=== PATIENT | female | born 1940 | race Caucasian/White ===

== ENCOUNTER → 2025-05-10 08:19 | Outpatient (REF) | payer OTHER, SELFPAY | LOC: MRI 08:19 | PROVIDERS: ATTENDING PHYSICIAN Internal Medicine Interventional Cardiology; FAMILY PHYSICIAN Family Medicine | DX: I50.22 Chronic systolic (congestive) heart failure (principal) | CPT/HCPCS: 75561; 75565; A9585 ==

== ENCOUNTER 2025-06-07 12:09 | Day surgery (SDC) | payer OTHER, SELFPAY ==
[2025-06-07] VITALS (13 sets, daily range): BP systolic 136–176; BP diastolic 71–109; BMI 24.0
--- NOTE | 2025-06-07 15:50 | ITS.CL.ICD ---
Brand Director - ICD
Implantable Cardioverter Defibrillator
Procedure Report:
Primary Underground Production Foreperson: Dr Kita Cunningham
Procedure Date: 06/07/2025
Name of procedure:
1. Placement of a dual-chamber ICD
2. Subclavian venography
History:
1. Patient is a pleasant 85-year-old female with a past medical history significant for hypertension, dyslipidemia, COPD, depression, aortic stenosis, left regurgitation, sleep apnea, CAD, osteoarthritis, heart failure with reduced ejection
fraction, mixed ischemic/nonischemic cardiomyopathy.
2. Please refer to H&P for complete history.
Indication:
Heart failure with reduced ejection fraction, NYHA class III symptoms
Persistent cardiomyopathy with LVEF less than or equal to 35% despite maximally tolerated goal-directed medical therapy for greater than 90 days
Primary prevention for sudden cardiac
Symptomatic sinus bradycardia with need for AV dat blocking agents
Methods:
After informed consent was obtained, the patient was brought to the EP laboratory in a postabsorptive, nonsedated state. Peripheral IV access was established. Prophylactic antibiotics were administered prior to incision. Continuous ECG, blood
pressure, and pulse oximetry were initiated. Cardioversion patch electrodes were placed on the patient's chest and back. A grounding patch was applied to the skin. Sedation was administered by anesthesia services.
In order to define the extrathoracic portion of the subclavian vein and exclude significant venous obstruction or anomalous anatomy, subclavian venography was performed prior to the procedure. Using the patient's left peripheral IV, contrast was
injected and images were recorded. The left subclavian vein and SVC were found to be widely patent.
The left chest was prepared and draped in a sterile fashion. A time-out was performed. Local anesthesia was injected in the subcutaneous tissue in the infraclavicular area. An incision was made medial to the deltopectoral groove. The subcutaneous
tissue was dissected the level of the prepectoral fascia. A subcutaneous pocket was created. Under fluoroscopic guidance and with the assistance of the images from the venogram, 2 separate venipunctures were made using micropuncture and modified
Seldinger technique. These were performed in the extrathoracic portion of the subclavian vein. Guidewires were passed and two peel-away sheaths were placed, and used to advance leads into the circulation.
Using fluoroscopic guidance, the leads were positioned. The RV lead was advanced to the RV/outflow tract. Ventricular ectopy was recorded. Images were taken in FIELD and HEBREW views to ensure appropriate lead placement. The lead tip was subsequently
positioned on the apical septum. Adequate sensing and pacing parameters were found, and no diaphragmatic stimulation was seen with high-output pacing.
Next, the right atrial lead was positioned in the right atrial appendage. Adequate sensing and pacing parameters were found, and no diaphragmatic stimulation was seen with high-output pacing. Both sheaths were split, and the leads were secured to
the fascia with Ethibond ties.
The pocket was flushed with antibiotic solution and hemostasis was assured. The generator was connected to the leads and placed inside the pocket. Antibiotic envelope was used. Floseal was applied. The wound was closed with 3 running layers of
absorbable suture, and steri-strips were applied. Dressing applied over steri-strips in standard fashion.
Following the procedure, the patient was taken to the recovery area in stable condition.
Lead parameters and device programming:
- RA Lead (Medtronic, Model 5076, # [id number]): Sensing 0.7 mV, Pacing threshold 0.75 V at 0.4 ms, Imp 570 ohm
- RV Lead (Medtronic, Model 6935 M55, # [id number]): Sensing 18.0 mV, Pacing threshold 0.5 V at 0.4 ms, Imp 450 ohm
- Device: Medtronic, Model DXVN7H0 ICD (# [id number]), programmed AAIR�DDDR, mode switch on, low rate 50, upper tracking rate 130 ppm
- Zones: Monitor 150-188 bpm; VF 188 and above with iATP plus shocks
Conclusions:
1. Successful placement of a dual-chamber ICD
2. Subclavian venography
Recommendations:
- Admit
- Portable chest x-ray in recovery or room.
� [facility] in the morning
- IV antibiotics while the patient is admitted.
- OK to resume home medications as indicated
� Okay to resume aspirin/Plavix if patient and site stable 06/08/2025
- Pressure dressing to be removed in AM, aquacell to remain until wound check
- Follow-up for incision check in the office in 7-10 days post-discharge
Rubin Patel DO, FACC, RS
[employer] Associate
cc: Dr Magalie Porter; Dr Kita Cunningham
--- NOTE | 2025-06-07 16:00 | PTCARENOTE ---
Pt received from crime lab analyst s/p dual chamber ICD placement. Pt alert, oriented to person, place, and event. States it is 1925 for year, reoriented. Denies pain, shortness of breath, and nausea. ROONEY with equal strength throughout. A-paced on tele with
occasional PVCs on tele with rates in the 60s. BP 141/99. Heart tones audible. Bilateral radial and DP pulses palpable. No edema noted. POX 92% on RA. Lungs clear throughout. Abdomen soft, nontender. Hypoactive BS. Briefs removed, due to void. Left
upper chest wall incision covered with Aquacel and pressure dressing, CDI. Left AC 20g PIV intact. See MAR for medication administration. See worklist for complete nursing assessment. Plan of care reviewed and patient in agreement.
[2025-06-07] MEDS: CARAFATE SUSPENSION 1 GM PO ×2 (18:10→22:36)
[2025-06-07] MEDS: LIPITOR 40 MG PO (18:10)
[2025-06-07] MEDS: ANCEF 5 IV (19:48)
--- NOTE | 2025-06-07 20:00 | PTCARENOTE ---
Assumed care of patient at 1900. Patient found resting in bed at time of assessment. Patient is AOx4, follows commands appropriately, moves all extremities. Lung sounds are clear and equal bilaterally, saO2 93% on RA. Heart sounds are audible, there
is a murmur present on auscultation, normal palpable pulses and trace ankle edema present. Patient has active BS in all four quadrants and is voiding in the bathroom. There is a L chest incision with aquacell dressing supported by pressure dressing
that is CDI. Patient has L AC PIV for intermittent infusion. Call snowden within reach.
[2025-06-07] MEDS: TOPROL XL 25 MG PO (22:36)
--- NOTE | 2025-06-07 23:00 | PTCARENOTE ---
report received from previous RN, walking rounds done. pt in bed, AAOx4. denies any pain at this time. VSS. A-paced via PPM on tele with occasional PVCs, HR 60s. PPM site CDI with aquacall and pressure dressing in place. L arm immobilizer intact.
heart tones audible. bilateral radial and DP pulses palpable. no edema noted. bilateral breath sounds present, POX 93% on RA. abdomen soft, nontender. +BS. voids in BR without difficulty. PIV intact and patent. see worklist for full assessment, VS,
and interventions.
[2025-06-08 03:58] VITALS: BMI 23.9
--- NOTE | 2025-06-08 04:15 | PTCARENOTE ---
no changes in assessment, VSS. A.paced w PVCs on monitor, HR 60s. POX 95% on room air. PPM site CDI. AM labs drawn and sent. EKG and [facility] done. pt resting between care.
[2025-06-08 04:16] VITALS: BP 162/84
[2025-06-08 04:18] LABS: Hematocrit 37.6 % (37.0-47.0); Hemoglobin 12.5 g/dL (12.0-16.0); Mean Corp Hgb Conc. 33.2 g/dL (33.0-37.0); Mean Corpuscular Volume 90.4 fL (81.0-99.0); Platelet Count 214 10^3/uL (130-400); Red Cell Dist. Width 14.5 % (11.5-14.5)
[2025-06-08] MEDS: ANCEF 5 IV (04:19)
[2025-06-08 04:55] LABS: Blood Urea Nitrogen 18 mg/dl (7-17); Calcium 9.2 mg/dl (8.4-10.2); Carbon Dioxide 29 mmol/L (22-30); Chloride 108 mmol/L (98-107); Estimated Creatinine Clearance 40 ml/min; Glucose 104 mg/dl (70-99); Magnesium 1.7 mg/dl (1.6-2.3); Potassium 4.0 mmol/L (3.5-5.1); Sodium 141 mmol/L (135-145); eGFR > 60.00
[2025-06-08 08:00] VITALS: BP 137/84
--- NOTE | 2025-06-08 08:02 | W.PN.CARDCBS ---
Addendum entered and electronically signed by Rubin Patel DO 06/08/25 11:09:
I saw and examined the patient.
The Automatic Spinning Lathe Setter's note was reviewed and I agree with the note.
Comment:
Patient seen and examined this morning. Patient resting comfortably in bed. Patient denies any chest pain, shortness of breath, palpitations, weakness. She has mild tenderness at device site but overall feeling well.
Telemetry demonstrates a paced V sensed, a paced V paced, rare a sense V pacing.
EKG shows a paced V sensed with LVH
Chest x-ray shows no evidence of pneumothorax, mild congestion
A/P as below
Patient is doing well status post dual-chamber ICD for primary prevention sudden cardiac
Gentle IV diuresis and continued outpatient diuresis
Incision check in our office followed by follow-up with primary cardiology/primary care as scheduled
Original Note:
Today's Communication / Plan
-
Post DC ICD
stable for d/c home after gentle diuresis
Impression / Plan
-
Primary Worm Picker: Dr Kita Cunningham
Primary care physician: Magalie Porter MD
85-year-old female with a past medical history significant for hypertension, dyslipidemia, COPD, depression, aortic stenosis, left regurgitation, sleep apnea, CAD, osteoarthritis, heart failure with reduced ejection fraction, mixed
ischemic/nonischemic cardiomyopathy.
Impression:
Chronic HFrEF 25-30%
post Dual chamber ICD Medtronic 06/07/25
CAD with SAW MAKER RCA
mixed ischemic/nonischemic CM
HTN
HLD
COPD
RAMON
COPD
GERD
Overactive bladder with stimulator
mild
Depression
Plan:
post device site stable
tele Apaced with occ PVC's
CXR with no PTX, mild pulmonary edema and LLL atelectasis
denies SOB but has scattered crackles and wheeze, will give one time dose of IV Lasix this am, then resume PO in am
HF continue metoprolol succinate, losartan, Lasix, dapagliflozin
Activity restrictions reviewed
CAD on ASA/Plavix, statin
smoking cessation reinforced - she is down to 5 cigarettes/day
Incision check at [facility] 1 week
continue cardiac care with Dr. Cunningham
home this afternoon after diuresis
Progress Note - Worm Picker
Subjective
Date of Service: June 08, 2025
denies cp, sob
Objective
Labs:
06/08/25 04:02
06/08/25 04:02
Labs
Hgb 12.5 g/dL (12.0-16.0) 06/08/25 04:02
Hct 37.6 % (37.0-47.0) 06/08/25 04:02
Plt Count 214 10^3/uL (130-400) 06/08/25 04:02
Sodium 141 mmol/L (135-145) 06/08/25 04:02
Potassium 4.0 mmol/L (3.5-5.1) 06/08/25 04:02
BUN 18 mg/dl (7-17) H 06/08/25 04:02
Creatinine 0.7 mg/dL (0.6-1.0) 06/08/25 04:02
Glucose 104 mg/dl (70-99) H 06/08/25 04:02
Vital Signs and I&O:
Vital Signs
Temp Pulse Resp BP Pulse Ox
98.0 F 65 18 162/84 95
06/08/25 04:16 06/08/25 04:24 06/08/25 04:16 06/08/25 04:16 06/08/25 04:16
Vital Signs
Temp Pulse Resp BP Pulse Ox
98.0 F 65 18 162/84 95
06/08/25 04:16 06/08/25 04:24 06/08/25 04:16 06/08/25 04:16 06/08/25 04:16
Intake & Output
06/06/25 06/07/25 06/08/25 06/09/25
06:59 06:59 06:59 06:59
Intake Total 240 / 240
Balance 240 / 240
Physical Exam
Physical Exam
NAD, AOX3
S1, S2, RRR, III/ BERTHA
exp wheezes t/o with scattered crackles, non labored
SNTND Bsx4
L CW Dressing c/d/i no HT or drainage
No LE edema
--- NOTE | 2025-06-08 08:30 | PTCARENOTE ---
Resumed care of patient. Walking rounds completed with previous RN. Pt assessed while she was lying in bed. Pt alert and oriented x4. Denies pain, shortness of breath, and nausea. ROONEY with equal strength, independent in the room. A-paced via
AIDC/PPM on tele with occasional PVCs with rates in the 60s. BP 137/84. Bilateral radial and DP pulses palpable. No edema noted. POX 98% on RA. Lungs clear throughout. No cough. Abdomen soft, nontender. Hypoactive BS. Tolerated breakfast. Pt reports
no issues with urination. Left upper chest wall incision covered with antibacterial dressing, no drainage noted. Left AC PIV intact. See MAR for medication administration. See worklist for complete nursing assessment. Plan of care reviewed and
patient in agreement.
[2025-06-08 08:35] VITALS: BP 137/84
[2025-06-08] MEDS: LASIX 20 MG IV (08:36)
[2025-06-08] MEDS: CARAFATE SUSPENSION 1 GM PO ×2 (08:36→12:45)
[2025-06-08] MEDS: PROTONIX 40 MG PO (08:36)
[2025-06-08] MEDS: FEOSOL 325 MG PO (08:36)
[2025-06-08] MEDS: ASPIR LOW (ENTERIC COATED) 81 MG PO (08:36)
[2025-06-08] MEDS: KLOR-CON 20 MEQ PO (08:36)
[2025-06-08] MEDS: PLAVIX 75 MG PO (08:36)
[2025-06-08] MEDS: FARXIGA 10 MG PO (08:36)
[2025-06-08] MEDS: ZOLOFT 50 MG PO (08:36)
[2025-06-08] MEDS: COZAAR 100 MG PO (08:36)
--- NOTE | 2025-06-08 09:55 | W.DS.TRANS ---
DC Summary - Polystyrene Molding Machine Tender
-
Discharge Instructions:
Discharge Diagnosis/Procedures ICD implantation
Diet Low Cholesterol,2 Gram Sodium
Driving Restrictions No driving for 1 week
Bathing Restrictions OK to Shower
Specialty Instructions Weigh Daily
Instructions:
Stand-Alone Forms: DC Inst - Implanted Device
Changes to Home Medications: No
Discharge Medications:
DC Medications w/original date entered in [facility]
aspirin 81 mg capsule 81 mg PO DAILY 06/07/25
atorvastatin 40 mg tablet 40 mg PO DAILY 06/07/25
clopidogrel 75 mg tablet 75 mg PO DAILY 06/07/25
dapagliflozin propanediol 10 mg tablet (Farxiga) 10 mg DAILY 06/07/25
ferrous sulfate 325 mg (65 mg iron) tablet 325 mg PO DAILY 06/07/25
furosemide 20 mg tablet 20 mg PO DAILY 06/07/25
losartan 100 mg tablet 100 mg PO DAILY 06/07/25
metoprolol succinate 25 mg tablet,extended release 24 hr 25 mg PO HS 06/07/25
omeprazole 40 mg capsule,delayed release 40 mg PO DAILY 06/07/25
potassium chloride 20 mEq oral packet 20 meq PO DAILY 06/07/25
sertraline 50 mg tablet 50 mg PO DAILY 06/07/25
sucralfate 100 mg/mL oral suspension 10 ml PO QID 06/07/25
Home Medication Changes
Pending Results: No
[2025-06-08 11:08] VITALS: BP 137/79
[2025-06-08] MEDS: MAGNESIUM OXIDE 400 MG PO (11:09)
--- NOTE | 2025-06-08 11:10 | PTCARENOTE ---
Pt reassessed. VSS. Surgical site stable. No acute changes. Pt awaiting ride for discharge.
--- NOTE | 2025-06-08 12:52 | CM ---
spoke to pt in room, she is prev indep, lives alone in an apt with an elevator. she has a rolling walker she uses. she denies any dc planning needs. plan is for dc to home when medically stable.
== END 2025-06-08 12:54 | disposition home or self-care (01) ==
LOC: CATH 12:09
PROVIDERS: Nurse Practitioner Adult Health; ATTENDING PHYSICIAN Internal Medicine Cardiovascular Disease; OTHER PHYSICIAN Internal Medicine Interventional Cardiology
DX: I11.0 Hypertensive heart disease with heart failure (principal); I25.10 Atherosclerotic heart disease of native coronary artery without angina pectoris; I50.22 Chronic systolic (congestive) heart failure; J44.9 Chronic obstructive pulmonary disease, unspecified; I25.82 Chronic total occlusion of coronary artery; I42.8 Other cardiomyopathies; I25.5 Ischemic cardiomyopathy; E78.5 Hyperlipidemia, unspecified; G47.33 Obstructive sleep apnea (adult) (pediatric); K21.9 Gastro-esophageal reflux disease without esophagitis; N32.81 Overactive bladder; I35.0 Nonrheumatic aortic (valve) stenosis; F32.A Depression, unspecified; F17.200 Nicotine dependence, unspecified, uncomplicated; Z79.899 Other long term (current) drug therapy; Z79.82 Long term (current) use of aspirin; Z79.02 Long term (current) use of antithrombotics/antiplatelets; I49.3 Ventricular premature depolarization; M19.90 Unspecified osteoarthritis, unspecified site; Z88.2 Allergy status to sulfonamides
CPT/HCPCS: 33249; 71045; 80048; 83735; 85027; 93005; C1721; C1777; C1898; Q9967